=== PATIENT | female | born 1980 | race Caucasian/White ===

== ENCOUNTER 2016-07-13 07:49 | Inpatient (IN) | payer OTHER ==
[~2016-07-13] VITALS: Ht 160 cm; Wt 105.4 kg
[~2016-07-13 07:49] MED LIST: ATIVAN0.5 MG PO; FLEXERIL10 MG PO; IBUPROFEN200 M1 PO; TYLENOL EXTRA500 MG PO
[2016-07-13 08:12] VITALS: BP 123/66
[2016-07-13 14:14] VITALS: BP 148/93
[2016-07-13 17:21] VITALS: BP 128/67
[2016-07-13 18:11] LABS: HEMATOCRIT 42.4 % (36.0-46.0); MCH 29.5 PG (29.0-34.0); MCV 89.3 FL (83-99); PLATELET COUNT 192 K/uL (156-360); RBC DIS.WIDTH-CV 12.6 % (11.8-14.6); RBC DIS.WIDTH-SD 41.3 % (39-53); RED BLOOD COUNT 4.75 M/uL (3.80-5.20); WHITE BLOOD COUNT 13.3 K/uL (4.1-10.2)
[2016-07-13 19:14] LABS: ANION GAP 7 MEQ/L (2-14); CHLORIDE 103 MEQ/L (99-109); GFR ESTIMATE (CALCULATED) > 59 mL/min/; GLUCOSE 146 mg/dL (70-99); POTASSIUM 4.2 MEQ/L (3.7-5.4); SAMPLE HEMOLYSIS CHECK 0; SAMPLE ICTERIC CHECK 0; SAMPLE LIPEMIA CHECK 0; SODIUM 135 MEQ/L (136-147); UREA NITROGEN (BUN) 8 mg/dL (9-23)
[2016-07-13 19:32] VITALS: BP 132/62
[2016-07-13 23:50] VITALS: BP 139/66
[2016-07-14 04:08] VITALS: BP 112/61
[2016-07-14 06:42] LABS: HEMATOCRIT 36.9 % (36.0-46.0); MCH 29.5 PG (29.0-34.0); MCHC 32.5 G/DL (30.0-36.0); MCV 90.7 FL (83-99); MEAN PLAT.VOLUME 12.3 uM^3 (9.5-12.4); PLATELET COUNT 183 K/uL (156-360); RBC DIS.WIDTH-CV 12.9 % (11.8-14.6); RBC DIS.WIDTH-SD 42.5 % (39-53); RED BLOOD COUNT 4.07 M/uL (3.80-5.20); WHITE BLOOD COUNT 11.7 K/uL (4.1-10.2)
[2016-07-14 07:01] LABS: ANION GAP 5 MEQ/L (2-14); CHLORIDE 104 MEQ/L (99-109); GFR ESTIMATE (CALCULATED) > 59 mL/min/; POTASSIUM 3.8 MEQ/L (3.7-5.4); SAMPLE HEMOLYSIS CHECK 0; SAMPLE ICTERIC CHECK 0; SAMPLE LIPEMIA CHECK 0; SODIUM 137 MEQ/L (136-147); UREA NITROGEN (BUN) 7 mg/dL (9-23)
[2016-07-14 07:02] LABS: GLUCOSE 103 mg/dL (70-99)
[2016-07-14] MEDS ORDERED: TRAMADOL HCL50 MG PO (09:14)
[2016-07-14 10:04] VITALS: BP 141/68
== END 2016-07-14 10:10 | disposition home or self-care (01) | DRG 743 ==
LOC: 2SOUTH 07:49 → 2EAST 13:34 → 2SOUTH 14:25 → 2EAST 07-14 10:10
PROVIDERS: Obstetrics & Gynecology Gynecologic Oncology
DX: N83.202 Unspecified ovarian cyst, left side (principal); N93.8 Other specified abnormal uterine and vaginal bleeding; N73.6 Female pelvic peritoneal adhesions (postinfective); D27.1 Benign neoplasm of left ovary; Z87.891 Personal history of nicotine dependence
CPT/HCPCS: 80048; 85027; 86900; 86901; 86920; 88307; 88331; 94799; J0131; J0690; J1100; J1170; J1885; J2250; J2270; J2405; J2710; J2765; J3010